=== PATIENT | female | born 1995 ===

== ENCOUNTER → 2018-01-07 | Outpatient (CLI) | payer OTHER | END | disposition home or self-care (01) | LOC: MRI 12:26 → RAD 12:26 | DX: M22.41 Chondromalacia patellae, right knee (principal); M23.203 Derangement of unspecified medial meniscus due to old tear or injury, right knee | CPT/HCPCS: 73721 ==

== ENCOUNTER → 2018-01-07 | Outpatient (CLI) | payer OTHER | END | disposition home or self-care (01) | LOC: RAD 12:19 | DX: M22.41 Chondromalacia patellae, right knee (principal); M22.42 Chondromalacia patellae, left knee ==